=== PATIENT | female | born 1985 | race Caucasian/White ===

== ENCOUNTER 2022-08-14 17:50 | Outpatient (CLI) | payer OTHER, SELFPAY ==
[2022-08-15 00:12] LABS: Chlamydia DNA Amplified* NOT DETECTED (No Detected); GC DNA Amplified* NOT DETECTED (No Detected)
== END 2022-08-14 17:51 | disposition home or self-care (01) ==
PROVIDERS: PCP Physician Assistant Medical; Visit Provider Physician Assistant Medical
DX: Z11.3 Encounter for screening for infections with a predominantly sexual mode of transmission (principal)
CPT/HCPCS: 87491; 87591

== ENCOUNTER 2022-08-24 09:10 | Outpatient (CLI) | payer OTHER, SELFPAY | END 2022-08-24 09:11 | disposition home or self-care (01) | LOC: NFLDREF 08-25 14:28 | PROVIDERS: PCP Physician Assistant Medical; Referring Provider Physician Assistant Medical; Visit Provider Physician Assistant Medical | DX: Z00.00 Encounter for general adult medical examination without abnormal findings (principal); L68.0 Hirsutism | CPT/HCPCS: 80053; 80061; 82533; 82670; 83001; 83002; 83498; 84143; 84146; 84403; 84443 ==

== ENCOUNTER 2022-09-01 07:42 | Outpatient (CLI) | payer OTHER, SELFPAY ==
--- NOTE | 2022-09-01 08:15 | CRLHL7_ITS ---
For Patients: As a result of the Century Cures Act, medical imaging exams and procedure reports are released immediately into your electronic medical record. You may view this report before your referring provider. If you have questions, please contact your health care provider. INDICATION: Headaches. Vertigo. TECHNIQUE: Multiplanar multisequence noncontrast MR images acquired through the brain. COMPARISON: None. FINDINGS: The ventricles and sulci are within normal limits for patient age. No mass effect or midline shift. No parenchymal signal abnormalities. No intracranial hemorrhage or pathologic extra-axial fluid collection. No diffusion restriction is suggest acute infarction. The major arterial flow voids of the skullbase are preserved. The globes are symmetric. Mild right maxillary sinus mucosal thickening. Moderate left maxillary sinus retention cyst or polyp. Rightward nasal septal deviation. The mastoid air cells are clear. IMPRESSION: Unremarkable noncontrast MRI of the brain. Dictated by Urban Garcia MD @ 09/01/2022 10:21:05 AM (Electronically Signed)
--- NOTE | 2022-09-01 09:30 | CRLHL7_ITS ---
For Patients: As a result of the Century Cures Act, medical imaging exams and procedure reports are released immediately into your electronic medical record. You may view this report before your referring provider. If you have questions, please contact your health care provider. INDICATION: Hyperandrogenism. Congenital adrenal hyperplasia. TECHNIQUE: Contrast enhanced CT of the abdomen and pelvis. 76 cc nonionic [id number] administered. FINDINGS: Both adrenal glands are normal in overall size and appearance with the exception of a small left adrenal gland nodule likely an adenoma measuring 9 x 11 mm, image 33 series 2. No adrenal gland hyperplasia. The liver, spleen, pancreas, gallbladder, and kidneys are within normal limits. Normal caliber abdominal aorta and iliac arteries. Normal inferior vena cava. No bowel obstruction or ileus. No ascites or lymphadenopathy. The urinary bladder is unremarkable. The uterus and adnexa are within normal limits. Small right ovarian cyst likely physiologic, image 110 series 2 measuring up to 1.5 cm. Clear included lung bases. The included skeleton is unremarkable. IMPRESSION: 9 x 11 mm left adrenal gland nodule likely an adenoma. The examination is otherwise negative. Please note that all CT scans at this facility use dose modulation, iterative reconstruction, and/or weight-based dosing when appropriate to reduce radiation dose to as low as reasonably achievable. Dictated by Isacc Dewey MD @ 09/01/2022 11:31:31 AM (Electronically Signed)
== END 2022-09-01 07:43 | disposition home or self-care (01) ==
LOC: MRI 07:43
PROVIDERS: PCP Physician Assistant Medical; Visit Provider Physician Assistant Medical
DX: G43.909 Migraine, unspecified, not intractable, without status migrainosus (principal); R42 Dizziness and giddiness; E27.9 Disorder of adrenal gland, unspecified; E28.8 Other ovarian dysfunction; E25.0 Congenital adrenogenital disorders associated with enzyme deficiency; L68.0 Hirsutism
CPT/HCPCS: 70551; 74177; Q9967

== ENCOUNTER 2022-11-16 22:01 | Outpatient (REF) | payer OTHER, SELFPAY ==
[2022-11-16 22:31] LABS: Chloride* 101 mmol/L (96-114); Potassium* 3.9 mmol/L (3.6-5.1); Sodium* 138 mmol/L (135-149)
[2022-11-16 22:34] LABS: Carbon Dioxide* 27 mmol/L (20-32); Creatinine* 0.7 mg/dL (0.5-1.5); Estimated Glomerular Filt Rate 113 ml/min
[2022-11-16 22:35] LABS: Blood Urea Nitrogen* 15 mg/dL (5-24); Glucose* 65 mg/dL (60-115)
[2022-11-18 20:56] LABS: DHEAS 7 ug/dL (61-337)
[2022-11-18 21:22] LABS: Cortisol, Serum <0.2 ug/dL
[2022-11-20 14:25] LABS: 17-Hydroxyprogesterone HPLC 41.64 ng/dL (<=206.00)
== END 2022-11-16 22:02 | disposition home or self-care (01) ==
LOC: NPINS 22:01
PROVIDERS: PCP Physician Assistant Medical; Visit Provider Specialist
DX: E27.8 Other specified disorders of adrenal gland (principal)
CPT/HCPCS: 80048; 82024; 82533; 82627; 83498; 84144